=== PATIENT | female | born 1960 | race Caucasian/White ===

== ENCOUNTER → 2023-09-17 14:03 | Outpatient (REF) | payer OTHER, SELFPAY | LOC: WDC 14:03 | PROVIDERS: ATTENDING PHYSICIAN Nurse Practitioner Adult Health; FAMILY PHYSICIAN Family Medicine | DX: Z12.31 Encounter for screening mammogram for malignant neoplasm of breast (principal) | CPT/HCPCS: 77063; 77067 ==

== ENCOUNTER → 2023-10-06 14:35 | Outpatient (REF) | payer OTHER, SELFPAY | LOC: HWRAD 14:35 | PROVIDERS: ATTENDING PHYSICIAN Nurse Practitioner Adult Health | DX: M54.41 Lumbago with sciatica, right side (principal); M54.42 Lumbago with sciatica, left side | CPT/HCPCS: 72110 ==

== ENCOUNTER → 2023-10-08 14:14 | Outpatient (REF) | payer OTHER, SELFPAY | LOC: RAD 14:14 | PROVIDERS: ATTENDING PHYSICIAN Physician Assistant Medical; FAMILY PHYSICIAN Nurse Practitioner Adult Health | DX: M79.661 Pain in right lower leg (principal); M79.662 Pain in left lower leg; I83.90 Asymptomatic varicose veins of unspecified lower extremity; I87.2 Venous insufficiency (chronic) (peripheral) | CPT/HCPCS: 93922; 93925; 93970 ==

== ENCOUNTER → 2023-10-12 15:36 | Outpatient (REF) | payer OTHER, SELFPAY | LOC: HWRAD 15:36 | PROVIDERS: ATTENDING PHYSICIAN Nurse Practitioner Adult Health | DX: Z78.0 Asymptomatic menopausal state (principal) | CPT/HCPCS: 77080 ==

== ENCOUNTER 2023-11-10 14:37 | Emergency (ER) | payer OTHER, SELFPAY ==
[2023-11-10 14:44] VITALS: BP 107/83
[2023-11-10 15:20] LABS: % Basophils 0.2 % (0-2); % Immature Granulocytes 0.4 % (0-0.5); % Lymphocytes 26.4 % (20.5-51.1); % Monocytes 9.1 % (1.7-9.3); % Neutrophils 61.9 % (42.2-75.2); Absolute Eosinophils 0.2 10^3/uL (0-0.7); Absolute Lymphocytes 2.2 10^3/uL (1.2-3.4); Absolute Monocytes 0.8 10^3/uL (0.1-0.6); Absolute Neutrophils 5.3 10^3/uL (1.4-6.5); Hematocrit 37.6 % (37.0-47.0); Hemoglobin 12.9 g/dL (12.0-16.0); Mean Corp Hgb Conc. 34.3 g/dL (33.0-37.0); Mean Corpuscular Volume 90.4 fL (81.0-99.0); Mean Platelet Volume 10.1 fL (7.4-10.4); Nucleated Red Blood Cells % 0 %; Platelet Count 340 10^3/uL (130-400); Red Blood Cell Count 4.16 10^6/uL (4.20-5.40); Red Cell Dist. Width 13.1 % (11.5-14.5); White Blood Cell Count 8.5 10^3/uL (4.8-10.8)
[2023-11-10 15:33] LABS: Urine Albumin Negative (Neg - Trace); Urine Bilirubin Negative (Negative); Urine Character Clear (Clear); Urine Color Yellow; Urine Glucose Negative (Negative); Urine Ketone Trace (Negative); Urine Leukocyte 2+ (Negative); Urine Nitrite Negative (Negative); Urine Occult Blood 1+ (Negative); Urine Urobilinogen Negative (Neg - 1+)
[2023-11-10 15:40] LABS: ALT (SGPT) 17 U/L (0-35); AST (SGOT) 27 U/L (14-36); Albumin 4.6 g/dl (3.5-5.0); Alkaline Phosphatase 60 U/L (38-126); Blood Urea Nitrogen 16 mg/dl (7-17); Calcium 9.6 mg/dl (8.4-10.2); Carbon Dioxide 28 mmol/L (22-30); Chloride 103 mmol/L (98-107); Glucose 111 mg/dl (70-99); Potassium 4.6 mmol/L (3.5-5.1); Sodium 136 mmol/L (135-145); Total Bilirubin 0.7 mg/dl (0.2-1.3); Total Protein 7.4 g/dl (6.3-8.2); eGFR > 60.00
[2023-11-10 15:49] LABS: Urine Bacteria Few (Negative); Urine Mucus Few
--- NOTE | 2023-11-10 16:56 | ED.GENMED ---
History of Present Illness
General
Chief Complaint: Flank Pain
Time Seen by Provider: 11/10/23 16:56
History of Present Illness
History of Present Illness:
HPI: Patient presents with mid back pain primarily on the right side. She has not had pain like this before. She does seem to have a more focal area of pain just to the right of midline in the lumbar spine. She has not had kidney stones in the
past. She has not had fevers. She has a history of diverticulitis and for this reason was told not to take NSAIDs.
EXAM:
GENERAL: Well appearing in no distress
HEENT: Moist oral mucosa
CARDIOVASCULAR: No murmurs, normal heart rate, regular rhythm, No chest wall tenderness
PULMONARY: No respiratory distress, breath sounds are clear and equal
ABDOMEN: Soft with no peritoneal signs, no tenderness
BACK: There is no CVA tenderness however there is a focal area of tenderness just to the right of midline of the lumbar spine in the paravertebral muscular region
NEUROLOGIC: Excellent strength all extremities, no coordination deficits
PSYCHIATRIC: Appropriate mental status, normal insight and judgement
EXTREMITIES: Nontender, no edema, moves all extremities equally
SKIN: No rash, no lesions
TIME OF INITIAL ENCOUNTER: 4:30 PM
NUMBER AND COMPLEXITY OF PROBLEMS ADDRESSED AT THE ENCOUNTER
� Chronic conditions affecting care: Has had cholecystectomy
� Acute Exacerbation and/or Progression of Chronic Illness: This is an acute problem
� Differential Diagnosis includes: Ureteral stone/colic, musculoskeletal back pain, pyelonephritis less likely given lack of fever and normal white count
AMOUNT AND/OR COMPLEXITY OF DATA TO BE REVIEWED AND ANALYZED
� I performed an independent evaluation of and my interpretation is:
EKG:
CT: CT imaging personally reviewed�some degenerative changes noted of the L-spine but no evidence of kidney stone
X-rays:
Laboratory Studies: CBC and chemistries unremarkable, LFTs normal, urinalysis shows trace ketones, 1+ blood, 11-15 white cells
Other:
� Review of other/old records: The patient had colonoscopy in 2021
� Clinical information was obtained by an independent historian: None needed but I did speak to friend at bedside
� Prescriptions/Medications Considered but not given: The patient declined IV access/IV fluids/IV medication but except trying a dose of Motrin
� Further testing considered but not performed: No clear indication for MRI at this time as she has good lower extremity strength
RISK OF COMPLICATIONS AND/OR MORBIDITY OR MORTALITY OF PATIENT MANAGEMENT
� Social determinants of health affecting care: Lives at home, is a retired florist helper
� Discussion with other providers:
� Escalation of care including admission/observation vs risk of discharge considered: CT imaging obtained which shows no evidence of kidney stone. Motrin has not helped. She states that steroids have helped her in the past.
Will give very short course of steroids as she was recently on steroids.
Past History
Past History
ED Past Medical History: None
ED Past Surgical History: Cholecystectomy and Orthopedic
Social History
Tobacco: Non-smoker
Personal:
Living: with family
Employment: Employed
Phy Exam
Physical Exam
Physical Exam:
See HPI
Course
Orders/Labs/Results
Orders:
Orders
11/10/23 14:58
Urinalysis Reflex To Culture Urgent
Date Specimen was Collected: 11/10/23
Time Specimen was Collected: 14:48
Urine Microscopic Reflex Cult Urgent
Urine Culture Urgent
SUZETTE Source: U
Specimen Description:
Date Specimen was Collected: 11/10/23
Time Specimen was Collected: 14:48
11/10/23 15:02
Complete Blood Count/With Diff Urgent
Comprehensive Metabolic Panel Urgent
11/10/23 17:16
CT Abd/pel Without Iv Or Oral Urgent
Comment:
Reason For Exam: R flank pain
Ibuprofen [Motrin] 600 mg PO NOW STA
Abnormal Lab Results
11/10/23 11/10/23
14:58 15:02
RBC 4.16 L 10^6/uL
(4.20-5.40)
Absolute Monos (auto) 0.8 H 10^3/uL
(0.1-0.6)
Glucose 111 H mg/dl
(70-99)
Urine Ketones Trace A
(Negative)
Ur Occult Blood Reflex 1+ A
(Negative)
Leukocyte Esterase Rfl 2+ A
(Negative)
Urine RBC 3-6 A /HPF
(0-2)
Urine WBC (Reflex) 11-15 A /HPF
(0-5)
Urine Bacteria (Reflex) Few A
(Negative)
11/10/23 15:02
11/10/23 15:02
Vital Signs
Initial and Last Documented VS:
Initial Vital Signs
Temp Pulse Resp BP Pulse Ox
97.5 F 96 18 107/83 95
11/10/23 14:44 11/10/23 14:44 11/10/23 14:44 11/10/23 14:44 11/10/23 14:44
Last Documented Vital Signs
Temp Pulse Resp BP Pulse Ox
97.5 F 75 19 118/98 100
11/10/23 14:44 11/10/23 19:35 11/10/23 19:35 11/10/23 19:35 11/10/23 19:35
*Critical Care Note
Total Time (30-74mins, 75-104mins- exclusive of procedures): Not Applicable
ED Attending Note
-
Portions of this chart may have been created with voice recognition software.� Occasional wrong word or��sound alike� substitutions may have occurred due to the inherent limitations of voice recognition software.
Discharge Plan
Departure
Patient Disposition: Home (Routine Discharge)
Date of Disposition: 11/10/23
Time of Disposition: 19:35
Patient with high blood pressure during this ER visit?: Yes
Discharge Problem:
Back pain
Instructions: Low Back Pain (DC), BLOOD PRESSURE
Prescriptions:
New
prednisone 50 mg tablet
50 mg PO DAILY Qty: 3 0RF
Referrals:
Anika Fenton MD [Family Provider] -
Activity Restrictions/Additional Instructions:
Follow-up with your pain management doctor. Your white blood cell count and kidney function are both normal. The urinalysis shows a very small increased number of white cells in the urine as well as a small amount of blood. However CT imaging
shows no sign of kidney stones. The CAT scan did show facet arthrosis with grade 1 spondylolisthesis of L4 relative to L5, mild degenerative disc space narrowing most pronounced at L2-3, no compression deformity, mild scoliosis convex left. I sent
a prescription for prednisone 50 mg for 3 days to your pharmacy.
Interventions
Interventions:
*Risk Screen - Suicide Last Done: 11/10/23 14:44
*General Assessment Last Done: 11/10/23 14:44
*Neglect/Abuse Screening Last Done: 11/10/23 14:44
ED- Fall Risk Assessment Last Done: 11/10/23 17:51
TL-Pmfmvn-Rvmpgcwlva Assessment Last Done: 11/10/23 17:49
ED-Female Genitourinary Assessment Last Done: 11/10/23 17:49
ED-Musculoskeletal Assessment Last Done: 11/10/23 17:49
Discharge Date and Time
Print Language: FRENCH
[2023-11-10] MEDS: MOTRIN 600 MG PO (17:39)
[2023-11-10 17:41] VITALS: BP 114/78
[2023-11-10 19:35] VITALS: BP 118/98
== END 2023-11-10 19:57 | disposition home or self-care (01) ==
LOC: EMR 14:37
PROVIDERS: Emergency Medicine; EMERGENCY PHYSICIAN Emergency Medicine; FAMILY PHYSICIAN Family Medicine
DX: M54.6 Pain in thoracic spine (principal); R10.9 Unspecified abdominal pain; R03.0 Elevated blood-pressure reading, without diagnosis of hypertension; M43.16 Spondylolisthesis, lumbar region; M51.36 Other intervertebral disc degeneration, lumbar region; M41.9 Scoliosis, unspecified; K57.92 Diverticulitis of intestine, part unspecified, without perforation or abscess without bleeding; Z90.49 Acquired absence of other specified parts of digestive tract; Z88.8 Allergy status to other drugs, medicaments and biological substances
CPT/HCPCS: 99284; 74176; 80053; 81003; 81015; 85025; 87086

== ENCOUNTER 2024-09-08 11:00 | Emergency (ER) | payer MEDICARE, SELFPAY ==
[2024-09-08 11:11] VITALS: BP 123/90
[2024-09-08 12:23] VITALS: BMI 35.2
[2024-09-08 12:34] VITALS: BP 117/80
[2024-09-08 12:49] LABS: % Basophils 0.3 % (0-2); % Immature Granulocytes 0.3 % (0-0.5); % Lymphocytes 32.5 % (20.5-51.1); % Monocytes 9.9 % (1.7-9.3); Absolute Eosinophils 0.2 10^3/uL (0-0.7); Absolute Lymphocytes 2.1 10^3/uL (1.2-3.4); Absolute Monocytes 0.6 10^3/uL (0.1-0.6); Absolute Neutrophils 3.4 10^3/uL (1.4-6.5); Hematocrit 37.8 % (37.0-47.0); Hemoglobin 12.8 g/dL (12.0-16.0); Mean Corp Hgb Conc. 33.9 g/dL (33.0-37.0); Mean Corpuscular Hgb 30.9 pg (27.0-31.0); Mean Corpuscular Volume 91.3 fL (81.0-99.0); Mean Platelet Volume 10.3 fL (7.4-10.4); Nucleated Red Blood Cells % 0 %; Platelet Count 302 10^3/uL (130-400); Red Blood Cell Count 4.14 10^6/uL (4.20-5.40); Red Cell Dist. Width 13.2 % (11.5-14.5); White Blood Cell Count 6.3 10^3/uL (4.8-10.8)
[2024-09-08 13:06] LABS: ALT (SGPT) 16 U/L (0-35); AST (SGOT) 22 U/L (14-36); Albumin 4.2 g/dl (3.5-5.0); Alkaline Phosphatase 56 U/L (38-126); Blood Urea Nitrogen 16 mg/dl (7-17); Calcium 9.9 mg/dl (8.4-10.2); Carbon Dioxide 28 mmol/L (22-30); Chloride 109 mmol/L (98-107); Estimated Creatinine Clearance 92 ml/min; Glucose 85 mg/dl (70-99); Magnesium 1.9 mg/dl (1.6-2.3); Potassium 4.8 mmol/L (3.5-5.1); Sodium 141 mmol/L (135-145); Total Bilirubin 0.6 mg/dl (0.2-1.3); Total Protein 7.4 g/dl (6.3-8.2); eGFR > 60.00
[2024-09-08] MEDS: LOW STRENGTH ASPIRIN 324 MG PO (13:12)
[2024-09-08 13:15] LABS: NT-proBNP 188 pg/ml; Troponin I < 0.012 ng/ml
[2024-09-08 15:02] LABS: Cholesterol 207 mg/dl (50-199); HDL Cholesterol 80 mg/dl
[2024-09-08 15:26] LABS: Troponin I < 0.012 ng/ml
[2024-09-08 15:31] VITALS: BP 108/70
--- NOTE | 2024-09-08 16:16 | ED.GENMED ---
History of Present Illness
General
Chief Complaint: Jaw Pain
Source: patient
Exam Limitations: none
Time Seen by Provider: 09/08/24 12:27
Nursing documentation reviewed up to this point in time: agreed with
History of Present Illness
History of Present Illness:
64-year-old female presenting to the emergency department today with concerns of jaw discomfort that radiates into her neck somewhat into her chest. Has had this multiple times in the past. Seem to be the most prolonged episode this morning with
some associated shortness of breath. Symptoms are improved here but not completely gone. Has had this a few times once or twice a week over the past few months. No history of heart disease no smoking or drinking history.
Past History
Past History
ED Past Medical History: None
ED Past Surgical History: Cholecystectomy and Orthopedic
Social History
Tobacco: Non-smoker
Personal:
Living: with family
Employment: Employed
Review of Systems
Review of Systems
Allergies reviewed?: Yes
All Other Systems: ROS reviewed and negative except as documented in HPI and ROS
Phy Exam
Physical Exam
Physical Exam:
GENERAL: Alert , in no apparent distress
EYE: pupils equal and reactive
NECK: Supple, no significant adenopathy.
ENT: o/p clr, mmm.
CARDIAC: Regular rate and rhythm .
LUNGS: Clear breath sounds bilaterally, no acute respiratory distress, no wheezes/rales/rhonchi
ABDOMEN: Soft, without focal tenderness, no r/g, no cvat
NEUROLOGICAL: Alert and oriented, no focal neuro deficits
SKIN: Warm and dry, skin intact.
MUSCULOSKELETAL: No edema, well perfused.
PSYCH: Normal and appropriate interaction.
Course
Orders/Labs/Results
Orders:
Orders
09/08/24 11:01
Electrocardiogram (*1) Urgent
Reason for Study: Other
Other Reason for Exam: neck pain and sob
09/08/24 11:02
EKG- Treatment ONCE
09/08/24 12:25
Cholesterol Urgent
Comment: ADD ON
Complete Blood Count/With Diff Urgent
Comprehensive Metabolic Panel Urgent
HDL Cholesterol Urgent
Comment: ADD ON
Magnesium Urgent
NT-proBNP Urgent
Troponin I Urgent
09/08/24 12:38
Aspirin Chewable [Low Strength Aspirin] 324 mg PO NOW STA
CR Chest - 2 Views Urgent
Comment:
Reason For Exam: jaw pain
09/08/24 14:00
Add On- LAB Urgent
Tests Added?: total cholesterol, HDL/LDL
Electrocardiogram (*1) Urgent
Reason for Study: Chest Pain
EKG- Treatment ONCE
09/08/24 14:44
Troponin I Urgent
Abnormal Lab Results
09/08/24
12:25
RBC 4.14 L 10^6/uL
(4.20-5.40)
Monocytes % 9.9 H %
(1.7-9.3)
Chloride 109 H mmol/L
(98-107)
Cholesterol 207 H mg/dl
(50-199)
09/08/24 12:25
09/08/24 12:25
Vital Signs
Initial and Last Documented VS:
Initial Vital Signs
Temp Pulse Resp BP Pulse Ox
98.5 F 82 18 123/90 98
09/08/24 11:11 09/08/24 11:11 09/08/24 11:11 09/08/24 11:11 09/08/24 11:11
Last Documented Vital Signs
Temp Pulse Resp BP Pulse Ox
98.4 F 96 18 108/70 96
09/08/24 15:31 09/08/24 15:31 09/08/24 15:31 09/08/24 15:31 09/08/24 15:31
MDM/Problems Addressed
MDM/Problems Addressed:
64-year-old female presenting to the emergency department today with concerns of jaw discomfort some associated shortness of breath. Vital signs normal on arrival EKG without emergent findings troponin negative. Second troponin and second EKG were
obtained without acute abnormalities. Patient without significant risk factors for heart disease other than age. No signs of physical abnormalities on physical examination. Advised for close cardiac follow-up return precautions given.
*Critical Care Note
Total Time (30-74mins, 75-104mins- exclusive of procedures): Not Applicable
ED Attending Note
-
Portions of this chart may have been created with voice recognition software.� Occasional wrong word or��sound alike� substitutions may have occurred due to the inherent limitations of voice recognition software.
Discharge Plan
Departure
Patient Disposition: Home (Routine Discharge)
Date of Disposition: 09/08/24
Time of Disposition: 16:18
Patient with high blood pressure during this ER visit?: No
Condition: Good
Covid-19: Not Applicable
Discharge Problem:
Chest pain
Instructions: Chest Pain DCA Follow Up
Prescriptions:
No Action
prednisone 50 mg tablet
50 mg PO DAILY Qty: 3 0RF
Referrals:
Clifford Sher MD [Family Provider] -
Activity Restrictions/Additional Instructions:
You came to the emergency department today with concerns of jaw discomfort. Here you had a reassuring assessment. Please follow-up closely with cardiology. Return for any worsening, new or concerning symptoms.
Interventions
Interventions:
*Risk Screen - Suicide Last Done: 09/08/24 11:11
*General Assessment Last Done: 09/08/24 11:11
*Neglect/Abuse Screening Last Done: 09/08/24 11:11
ED- Cardiac Assessment Last Done: 09/08/24 12:45
ED-EENT Assessment Last Done: 09/08/24 12:45
Discharge Date and Time
Print Language: [place]IZ[place]
== END 2024-09-08 16:30 | disposition home or self-care (01) ==
LOC: EMR 11:00
PROVIDERS: Physician Assistant; EMERGENCY PHYSICIAN Emergency Medicine; FAMILY PHYSICIAN Family Medicine
DX: R07.89 Other chest pain (principal); Z90.49 Acquired absence of other specified parts of digestive tract
CPT/HCPCS: 99283; 71046; 80053; 82465; 83718; 83735; 83880; 84484; 85025; 93005

== ENCOUNTER → 2024-09-20 16:49 | Outpatient (REF) | payer MEDICARE, SELFPAY | LOC: HWWDC 16:49 | PROVIDERS: ATTENDING PHYSICIAN Nurse Practitioner Adult Health | DX: Z12.31 Encounter for screening mammogram for malignant neoplasm of breast (principal) | CPT/HCPCS: 77063; 77067 ==

== ENCOUNTER → 2024-12-04 22:00 | Outpatient (REF) | payer MEDICARE, SELFPAY | LOC: DHSLP 22:00 | PROVIDERS: ATTENDING PHYSICIAN Internal Medicine; FAMILY PHYSICIAN Nurse Practitioner | DX: G47.33 Obstructive sleep apnea (adult) (pediatric) (principal) | CPT/HCPCS: 95800 ==

== ENCOUNTER → 2024-12-14 13:58 | Outpatient (REF) | payer MEDICARE, SELFPAY | LOC: HWRCS 13:58 | PROVIDERS: ATTENDING PHYSICIAN Internal Medicine Interventional Cardiology; FAMILY PHYSICIAN Nurse Practitioner | DX: R07.89 Other chest pain (principal); E78.2 Mixed hyperlipidemia; Z87.891 Personal history of nicotine dependence | CPT/HCPCS: 93306 ==

== ENCOUNTER → 2025-01-11 10:06 | Outpatient (REF) | payer MEDICARE, SELFPAY | LOC: RCS 10:06 | PROVIDERS: ATTENDING PHYSICIAN Internal Medicine Interventional Cardiology; FAMILY PHYSICIAN Nurse Practitioner | DX: R07.89 Other chest pain (principal); E78.2 Mixed hyperlipidemia; Z87.891 Personal history of nicotine dependence | CPT/HCPCS: 93017; 93350 ==